=== PATIENT | male | born 1950 | race Caucasian/White ===

== ENCOUNTER 2019-10-27 08:52 | Day surgery (SDC) | payer MEDICARE ==
[~2019-10-27] VITALS: Ht 180.3 cm; Wt 85.9 kg
[~2019-10-27 08:52] MED LIST: VARE0.5T PO
[2019-10-27] MEDS ORDERED: normal saline 1000ml 1,000 ML IV SCH (09:10)
[2019-10-27 09:17] VITALS: BP 157/95
[2019-10-27] MEDS ORDERED: MULT-1074 PO (09:54)
[2019-10-27] MEDS ORDERED: BUDE10.22 INH (09:54)
[2019-10-27 10:45] VITALS: BP 121/76
[2019-10-27 11:00] VITALS: BP 135/76
[2019-10-27] MEDS ORDERED: HYDROcodone/acetaminophen 5mg/325mg tablet PO PRN (11:10)
[2019-10-27 11:15] VITALS: BP 109/72
[2019-10-27 11:30] VITALS: BP 128/76
[2019-10-27 11:45] VITALS: BP 113/66
== END 2019-10-27 12:12 | disposition home or self-care (01) ==
LOC: SSTAY O 08:52
PROVIDERS: ATTEND Radiology Diagnostic Radiology
DX: D11.9 Benign neoplasm of major salivary gland, unspecified (principal); C34.31 Malignant neoplasm of lower lobe, right bronchus or lung; R22.1 Localized swelling, mass and lump, neck; Z88.0 Allergy status to penicillin; Z88.5 Allergy status to narcotic agent; Z79.899 Other long term (current) drug therapy
CPT/HCPCS: 20206; 76942; J7030

== ENCOUNTER 2019-11-08 07:09 | Day surgery (SDC) | payer MEDICARE ==
[~2019-11-08] VITALS: Ht 180.3 cm; Wt 85.3 kg
[2019-11-08] VITALS (7 sets, daily range): BP systolic 119–145; BP diastolic 64–83
[~2019-11-08 07:09] MED LIST changes: +BUDE10.22 INH; +MULT-1074 PO; -VARE0.5T PO; +clindamycin-Cleocin 900mg/D5W 50 ML IV ONE; +famotidine 20mg tablet PO ONE; +ringers solution, lacted 1,000 ML IV SCH
[2019-11-08 09:17] LABS: BASOPHILS # (AUTO) 0.1 X10'3 (0-0.2); BASOPHILS % (AUTO) 0.9 % (0-1); EOSINOPHILS # (AUTO) 0.1 X10'3 (0-0.9); EOSINOPHILS % (AUTO) 1.1 % (0-6); HEMATOCRIT 43.5 % (42.0-52.0); HEMOGLOBIN 14.8 g/dl (14.0-17.9); LYMPHOCYTES # (AUTO) 0.4 X10'3 (1.1-4.8); LYMPHOCYTES % (AUTO) 5.4 % (21-51); MEAN CORPUSCULAR HEMOGLOBIN 32.5 PG (27.0-31.0); MEAN CORPUSCULAR HGB CONC 33.9 g/dL (33.0-36.5); MEAN CORPUSCULAR VOLUME 95.7 FL (78-98); MEAN PLATELET VOLUME 8.5 FL (7.4-10.4); MONOCYTES # (AUTO) 0.7 X10'3 (0-0.9); MONOCYTES % (AUTO) 9.9 % (2-12); NEUTROPHILS % (AUTO) 82.7 % (42-75); PLATELET COUNT 246 X10'3 (140-440); RED BLOOD COUNT 4.54 X10'6 (4.70-6.10); RED CELL DISTRIBUTION WIDTH 14.2 % (11.5-14.5); WHITE BLOOD COUNT 7.3 X10'3 (4.5-11.0)
[2019-11-08 09:40] LABS: ALANINE AMINOTRANSFERASE 22 U/L (12-78); ALBUMIN 3.3 G/DL (3.4-5.0); ALBUMIN/GLOBULIN RATIO 0.8 (1.1-1.5); ALKALINE PHOSPHATASE 78 IU/L (46-116); ANION GAP 10 (8-16); ASPARTATE AMINO TRANSFERASE 20 U/L (10-37); BILIRUBIN,TOTAL 0.5 MG/DL (0.1-1.0); BLOOD UREA NITROGEN 17 MG/DL (7-18); BUN/CREATININE RATIO 17.9 (5.4-32.0); CALCIUM 8.5 MG/DL (8.5-10.1); CHLORIDE 102 MMOL/L (99-107); CREATININE 0.95 MG/DL (0.60-1.10); GLUCOSE 107 MG/DL (70-104); POTASSIUM 4.1 MMOL/L (3.5-5.1); SODIUM 134 MMOL/L (135-145); TOTAL CARBON DIOXIDE 21.6 MMOL/L (24-32); TOTAL PROTEIN 7.7 G/DL (6.4-8.2); eGFR 79 ML/MIN
--- NOTE | 2019-11-08 10:08 | NUR ---
VERBAL COVID SCREEN DONE WITH PT NO S/S OF COVID NO FEVER. PER DR. FLORES & JOSE G CHANDLER NO RAPID TEST WILL BE PERFORMED ON THIS PT
[2019-11-08] MEDS ORDERED: BUPIVAcaine/PF 2.5 mg/ml (0.25%) 30ml vial ONE (10:58)
[2019-11-08] MEDS ORDERED: LIDOcaine 1% 30ml preserv. free vial ONE (10:58)
[2019-11-08] MEDS ORDERED: propofol inj 20 ML IV ONE (11:08)
[2019-11-08] MEDS ORDERED: LIDOcaine 2% (20mg/ml) 5ml vial ONE (11:08)
[2019-11-08] MEDS ORDERED: midazolam 2 mg/2 ml injection ONE (11:08)
[2019-11-08] MEDS ORDERED: fentaNYL/PF 50MCG/1 ML 2ML syringe ONE (11:08)
[2019-11-08] MEDS ORDERED: ringers solution, lacted 1,000 ML IV SCH (11:11)
[2019-11-08] MEDS ORDERED: meperidine/PF 25mg/ml syringe IV PRN ×3 (11:15)
[2019-11-08] MEDS ORDERED: ondansetron/PF 4mg/2ml inj IV PRN (11:15)
[2019-11-08] MEDS ORDERED: morphine 4 MG/ML inj SYRINge IV PRN (11:15)
[2019-11-08] MEDS ORDERED: morphine 2 MG/ML inj. syringe IV PRN (11:15)
[2019-11-08] MEDS ORDERED: proCHLORperazine 10 MG/2 ml inj IV PRN (11:15)
[2019-11-08] MEDS ORDERED: sevoflurane 250ml liquid IH ONE (11:17)
[2019-11-08] MEDS ORDERED: ondansetron/PF 4mg/2ml inj ONE (11:48)
[2019-11-08] MEDS ORDERED: dexamethasone sod phosphate 4mg/ml inj. ONE (11:48)
[2019-11-08] MEDS ORDERED: acetaminophen 1,000mg/100ml IV 100 ML IV ONE (11:49)
--- NOTE | 2019-11-08 12:22 | NUR ---
Received from OR via [facility] , accompanied by Anesthesiologist NACHO and report given by Anesthesiolgist. PATIENT WITH 20G PIV IN LEFT UE RUNNING LR AT 100. DENIES PAIN. RIGHT NECK DRESSING IS CDI AT THIS TIME. VSS. Addendum: 11/08/19 at 1235 by Kevin Guan RN, RN Amended: Links added.
--- NOTE | 2019-11-08 13:22 | NUR ---
I HAVE REVIEWED D/C INSTRUCTIONS WITH PATIENT AND FAMILY AND THEY HAVE VERBALIZED UNDERSTANDING. PATIENT D/C HOME WITH ALL BELONGINGS AND FAMILY GAVE TRANSPORT HOME. RIGHT NECK DRESSING IS CDI. Addendum: 11/08/19 at 1345 by Kevin Guan RN, RN Amended: Links added.
== END 2019-11-08 13:22 | disposition home or self-care (01) ==
LOC: PAS 07:09
PROVIDERS: ATTEND Surgery
DX: R59.0 Localized enlarged lymph nodes (principal); C77.0 Secondary and unspecified malignant neoplasm of lymph nodes of head, face and neck; C34.11 Malignant neoplasm of upper lobe, right bronchus or lung; F17.210 Nicotine dependence, cigarettes, uncomplicated; J43.9 Emphysema, unspecified; Z79.899 Other long term (current) drug therapy; Z88.0 Allergy status to penicillin; Z88.2 Allergy status to sulfonamides; Z88.8 Allergy status to other drugs, medicaments and biological substances; Z91.041 Radiographic dye allergy status; Z72.89 Other problems related to lifestyle; Z98.890 Other specified postprocedural states; Z82.49 Family history of ischemic heart disease and other diseases of the circulatory system
CPT/HCPCS: 36415; 38500; 80053; 85025; 93005; J0131; J1100; J2001; J2250; J2405; J2704; J3010; J3490; J7120; A4215; A4618; A6258; A7000

== ENCOUNTER 2023-06-10 11:22 | Day surgery (SDC) | payer MEDICARE ==
[~2023-06-10] VITALS: Ht 180.3 cm; Wt 82.1 kg
[~2023-06-10 11:22] MED LIST changes: -MULT-1074 PO; -clindamycin-Cleocin 900mg/D5W 50 ML IV ONE; -famotidine 20mg tablet PO ONE; -ringers solution, lacted 1,000 ML IV SCH
[2023-06-10 11:45] VITALS: BP 119/67; PULSE 74; RESP 16; TEMP 97.7; O2SAT 100
[2023-06-10] MEDS: normal saline 1000ml 1,000 ML IV SCH ×2 (11:50→12:32)
[2023-06-10] MEDS ORDERED: TURM500C4 PO (12:20)
[2023-06-10] MEDS ORDERED: METO-384 PO (12:20)
[2023-06-10] MEDS ORDERED: ASCO500C17 PO (12:20)
[2023-06-10] MEDS ORDERED: MULT-1085 PO (12:20)
[2023-06-10] MEDS ORDERED: ZINC220T3 PO (12:20)
[2023-06-10] MEDS ORDERED: SELE200C PO (12:20)
[2023-06-10] MEDS ORDERED: POTA-206 PO (12:20)
[2023-06-10] MEDS ORDERED: VITA1CAP PO (12:20)
[2023-06-10] MEDS ORDERED: FOLI1TAB27 PO (12:20)
[2023-06-10] MEDS ORDERED: ALBU10.7 INH (12:20)
[2023-06-10] MEDS ORDERED: CHOL200074 PO (12:20)
[2023-06-10] MEDS ORDERED: fentaNYL/PF 50MCG/1 ML 2ML syringe ONE (12:33)
[2023-06-10] MEDS ORDERED: LIDOcaine 1% 30ml preserv. free vial ONE (12:33)
[2023-06-10] MEDS ORDERED: heparin sodium, porcine/PF 100unit/ml 5ML syringe ONE (12:33)
[2023-06-10] MEDS ORDERED: midazolam 1 mg/ML 2ml injection ONE (12:33)
[2023-06-10 14:45] VITALS: BP 147/71; PULSE 68; RESP 16; O2SAT 97
[2023-06-10 15:00] VITALS: BP 137/69; PULSE 62; RESP 17; O2SAT 97
[2023-06-10 15:15] VITALS: BP 133/69; PULSE 58; RESP 16; O2SAT 99
[2023-06-10 15:30] VITALS: BP 151/57; PULSE 62; RESP 17; O2SAT 100
[2023-06-10 16:00] VITALS: BP 109/50; PULSE 68; RESP 17; O2SAT 98
== END 2023-06-10 16:10 | disposition home or self-care (01) ==
LOC: SSTAY O 11:22
PROVIDERS: ATTEND Radiology Diagnostic Radiology
DX: C34.31 Malignant neoplasm of lower lobe, right bronchus or lung (principal); J44.9 Chronic obstructive pulmonary disease, unspecified; Z88.0 Allergy status to penicillin; Z88.2 Allergy status to sulfonamides; Z91.041 Radiographic dye allergy status; Z79.899 Other long term (current) drug therapy; Z82.3 Family history of stroke
CPT/HCPCS: 36561; 76937; 77001; 99152; C1788; J1642; J2250; J3010; J3490; J7030; 76942; 96360; 99153; A4620